=== PATIENT | female | born 1995 | race Caucasian/White ===

== ENCOUNTER 2020-03-21 22:16 | Observation (INO) | payer MEDICAID ==
[~2020-03-21] VITALS: Ht 154.9 cm; Wt 68.0 kg
[~2020-03-21 22:16] MED LIST: IBUP-1636
[2020-03-21] MEDS ORDERED: PREN1TAB78 PO (22:40)
[2020-03-25] MEDS ORDERED: IBUP-2030 PO (00:52)
[2020-03-25] MEDS ORDERED: CEPH-569 MT (02:48)
== END 2020-03-22 00:25 | disposition home or self-care (01) ==
LOC: 8 EST LDRP 22:16
PROVIDERS: ADMIT Obstetrics & Gynecology; ATTEND Obstetrics & Gynecology
DX: O62.9 Abnormality of forces of labor, unspecified (principal); Z3A.40 40 weeks gestation of pregnancy
CPT/HCPCS: 59025; 76815; 76818; G0378; 99281